=== PATIENT | male | born 2000 | race Caucasian/White ===

== ENCOUNTER 2022-09-24 17:51 | Emergency (ER) | payer OTHER ==
[~2022-09-24] VITALS: Ht 177.8 cm; Wt 72.6 kg
[2022-09-24] MEDS ORDERED: IBUP200T46 PO (18:01)
[2022-09-24 20:11] VITALS: BP 120/67
[2022-09-24] MEDS ORDERED: IBUP80TA PO (20:21)
[2022-09-24] MEDS ORDERED: ACET-897 PO (20:21)
== END 2022-09-24 21:02 | disposition home or self-care (01) ==
LOC: M ED 17:51
DX: S16.1XXA Strain of muscle, fascia and tendon at neck level, initial encounter (principal); S50.11XA Contusion of right forearm, initial encounter; V43.62XA Car passenger injured in collision with other type car in traffic accident, initial encounter; Y92.410 Unspecified street and highway as the place of occurrence of the external cause